=== PATIENT | male | born 1985 | race Caucasian/White ===

== ENCOUNTER 2017-04-11 12:31 | Emergency (ER) | payer BC ==
--- NOTE | 2017-04-11 14:03 | EDM.PDOC ---
ED HPI GENERAL MEDICAL PROBLEM - General Chief Complaint: Cardiovascular Problem Stated Complaint: RACING HEART,SHORT OF BREATH Time Seen by Provider: 04/11/17 12:45 Source of Information: Reports: Patient, Family History Limitations: Reports: No Limitations - History of Present Illness INITIAL COMMENTS - FREE TEXT/NARRATIVE: pt worked all nite at the [employer] and he came home and was asleep. He woke up in the middle of his sleep period and felt like his heart was racing. He became very panicy and then did hyperventilate. He arrived here and felt tingly and still was hyperventilating some. Onset: Today, Sudden Duration: Hour(s): Location: Reports: Chest, Other ( was hyperventilating. ) Associated Symptoms: Reports: Shortness of Breath - Related Data Allergies Allergy/AdvReac Type Severity Reaction Status Date / Time No Known Allergies Allergy Verified 04/06/16 00:12 Home Meds: Home Meds Propranolol HCl 10 mg PO BID 04/11/17 [History] Past Medical History Musculoskeletal History: Reports: Fracture Other Musculoskeletal History: shoulder, clavical leg Hematologic History: Reports: Other (See Below) Other Hematologic History: bacterial meningitis - Infectious Disease History Infectious Disease History: Reports: Meningitis - Past Surgical History GI Surgical History: Reports: Appendectomy, Hernia Repair/Other Social & Family History - Family History Family Medical History: Noncontributory - Tobacco Use Smoking Status *Q: Never Smoker Second Hand Smoke Exposure: No - Recreational Drug Use Recreational Drug Use: No - Living Situation & Occupation Living situation: Reports: ED ROS GENERAL - Review of Systems Review Of Systems: See Below Constitutional: Reports: No Symptoms HEENT: Reports: No Symptoms Respiratory: Reports: Shortness of Breath Cardiovascular: Reports: Palpitations Endocrine: Reports: No Symptoms GI/Abdominal: Reports: No Symptoms : Reports: No Symptoms Musculoskeletal: Reports: No Symptoms Skin: Reports: No Symptoms Neurological: Reports: No Symptoms ED EXAM, GENERAL - Physical Exam Exam: See Below Free Text/Narrative:: pt arrived and was hyperventilating. Exam Limited By: No Limitations General Appearance: Alert, Anxious Ears: Normal TMs Nose: Normal Inspection Throat/Mouth: Normal Inspection Head: Atraumatic Neck: Normal Inspection Respiratory/Chest: No Respiratory Distress Cardiovascular: Regular Rate, Rhythm GI/Abdominal: Soft, Non-Tender Rectal (Males) Exam: Deferred Back Exam: Normal Inspection Extremities: Normal Inspection Neurological: Alert, Oriented Psychiatric: Anxious Course - Vital Signs Last Recorded V/S: Last Vital Signs Temp 37.3 C 04/11/17 12:43 Pulse Resp 26 H 04/11/17 12:43 BP 142/92 H 04/11/17 12:43 Pulse Ox 100 04/11/17 12:43 - Orders/Labs/Meds Orders: Active Orders 24 hr Category Date Time Status EKG Documentation Completion [RC] ASDIRECTED Care 04/11/17 14:02 Active EKG 12 Lead [EK] Routine Ther 04/11/17 14:02 Ordered Labs: Laboratory Tests 04/11/17 04/11/17 04/11/17 Range/Units 14:05 14:05 14:05 WBC 8.6 (4.5-11.0) K/uL RBC 5.43 (4.30-5.90) M/uL Hgb 16.4 H (12.0-15.0) g/dL Hct 44.9 (40.0-54.0) % MCV 83 (80-98) fL MCH 30 (27-31) pg MCHC 37 H (32-36) % Plt Count 235 (150-400) K/uL Neut % (Auto) 57 (36-66) % Lymph % (Auto) 28 (24-44) % [place] % (Auto) 12 H (2-6) % Eos % (Auto) 2 (2-4) % Baso % (Auto) 1 (0-1) % Sodium 138 L (140-148) mmol/L Potassium 3.4 L (3.6-5.2) mmol/L Chloride 103 (100-108) mmol/L Carbon Dioxide 27 (21-32) mmol/L Anion Gap 11.4 (5.0-14.0) mmol/L BUN 9 (7-18) mg/dL Creatinine 0.8 (0.8-1.3) mg/dL Est Cr Clr Drug Dosing 149.54 mL/min Estimated GFR (MDRD) > 60 (>60) Glucose 83 (74-106) mg/dL Calcium 9.0 (8.5-10.1) mg/dL Total Bilirubin 1.1 H (0.2-1.0) mg/dL AST 41 H (15-37) U/L ALT 82 H (12-78) U/L Alkaline Phosphatase 87 (46-116) U/L Total Protein 7.3 (6.4-8.2) g/dL Albumin 3.9 (3.4-5.0) g/dL Globulin 3.4 (2.3-3.5) g/dL Albumin/Globulin Ratio 1.1 L (1.2-2.2) TSH, Ultra Sensitive 3.767 H (0.358-3.740) uIU/mL Urine Color Urine Appearance Urine pH (4.5-8.0) Ur Specific [place] (1.008-1.030) Urine Protein (NEGATIVE) mg/dL Urine Glucose (UA) (NEGATIVE) mg/dL Urine Ketones (NEGATIVE) mg/dL Urine Occult Blood (NEGATIVE) Urine Nitrite (NEGAITVE) Urine Bilirubin (NEGATIVE) Urine Urobilinogen (NORMAL) mg/dL Ur Leukocyte Esterase (NEGATIVE) Urine RBC (0-5) Urine WBC (0-5) Ur Epithelial Cells Amorphous Sediment Urine Bacteria Urine Mucus 04/11/17 Range/Units 14:19 WBC (4.5-11.0) K/uL RBC (4.30-5.90) M/uL Hgb (12.0-15.0) g/dL Hct (40.0-54.0) % MCV (80-98) fL MCH (27-31) pg MCHC (32-36) % Plt Count (150-400) K/uL Neut % (Auto) (36-66) % Lymph % (Auto) (24-44) % [place] % (Auto) (2-6) % Eos % (Auto) (2-4) % Baso % (Auto) (0-1) % Sodium (140-148) mmol/L Potassium (3.6-5.2) mmol/L Chloride (100-108) mmol/L Carbon Dioxide (21-32) mmol/L Anion Gap (5.0-14.0) mmol/L BUN (7-18) mg/dL Creatinine (0.8-1.3) mg/dL Est Cr Clr Drug Dosing mL/min Estimated GFR (MDRD) (>60) Glucose (74-106) mg/dL Calcium (8.5-10.1) mg/dL Total Bilirubin (0.2-1.0) mg/dL AST (15-37) U/L ALT (12-78) U/L Alkaline Phosphatase (46-116) U/L Total Protein (6.4-8.2) g/dL Albumin (3.4-5.0) g/dL Globulin (2.3-3.5) g/dL Albumin/Globulin Ratio (1.2-2.2) TSH, Ultra Sensitive (0.358-3.740) uIU/mL Urine Color Yellow Urine Appearance Clear Urine pH 9.0 H (4.5-8.0) Ur Specific [place] 1.010 (1.008-1.030) Urine Protein Negative (NEGATIVE) mg/dL Urine Glucose (UA) Normal (NEGATIVE) mg/dL Urine Ketones Negative (NEGATIVE) mg/dL Urine Occult Blood Negative (NEGATIVE) Urine Nitrite Negative (NEGAITVE) Urine Bilirubin Negative (NEGATIVE) Urine Urobilinogen Normal (NORMAL) mg/dL Ur Leukocyte Esterase Negative (NEGATIVE) Urine RBC Not seen (0-5) Urine WBC Not seen (0-5) Ur Epithelial Cells Rare Amorphous Sediment Not seen Urine Bacteria Not seen Urine Mucus Not seen Meds: Medications Discontinued Medications Generic Name Dose Route Start Last Admin Trade Name Freq PRN Reason Stop Dose Admin Lorazepam 0.5 mg 04/11/17 15:01 Ativan PO 04/11/17 15:02 ONETIME ONE - Re-Assessments/Exams Free Text/Narrative Re-Assessment/Exam: 04/11/17 15:25 chest xray was found to be normal. He had a normal sinus rhythm and not rapid. He was being monitored for his o2 sats and after he fell asleep his sats dropped . I feel sleep apnea is a consideration Departure - Departure Time of Disposition: 15:32 Disposition: Home, Self-Care 01 Condition: Fair Clinical Impression: Hypothyroid, Sleep apnea in adult Forms: ED Department Discharge Care Plan Goals: appt with Matthew Gleason in next 4-5 days, ativan .5 1 tab q6h if pt should panc again. i - My Orders Last 24 Hours: My Active Orders 04/11/17 14:02 EKG Documentation Completion [RC] ASDIRECTED EKG 12 Lead [EK] Routine - Assessment/Plan Last 24 Hours: My Active Orders 04/11/17 14:02 EKG Documentation Completion [RC] ASDIRECTED EKG 12 Lead [EK] Routine
--- NOTE | 2017-04-11 14:29 | CR ---
Chest 2V HISTORY: Shortness of breath. COMPARISON: None FINDINGS: Cardiac size and pulmonary vessels normal. There are no infiltrates or effusions. No pneum othorax. The osseous structures appear normal. IMPRESSION: No acute pulmonary disease.
[2017-04-11] MEDS ORDERED: LORazepam 0.5 MG Tab PO ONE (15:01)
[2017-04-11 16:00] VITALS: BP 148/81
== END 2017-04-11 16:00 | disposition home or self-care (01) ==
LOC: JP.ED 12:31
DX: E03.9 Hypothyroidism, unspecified (principal); G47.30 Sleep apnea, unspecified; Z98.890 Other specified postprocedural states
CPT/HCPCS: 36415; 71020; 80053; 81001; 84443; 85025; 93005; 99285; A9270

== ENCOUNTER 2018-03-05 20:38 | Emergency (ER) | payer BC ==
[2018-03-05 21:22] VITALS: BP 138/53
--- NOTE | 2018-03-05 21:44 | EDM.PDOC ---
ED HPI GENERAL MEDICAL PROBLEM - General Chief Complaint: Lower Extremity Injury/Pain Stated Complaint: HURT LEFT HEEL Time Seen by Provider: 03/05/18 21:25 Source of Information: Reports: Patient History Limitations: Reports: No Limitations - History of Present Illness INITIAL COMMENTS - FREE TEXT/NARRATIVE: 32-year-old male injured his left heel while rounding the bases playing softball. He heard a loud pop and was unable to bear weight with his left foot. He now can't plantar flex his foot and he has bogginess in the posterior aspect of the heel. No other injury. Onset: Sudden Duration: Hour(s): (Within the last few hours) Associated Symptoms: Reports: No Other Symptoms Left Lower Posterior Leg Pain Score (Numeric/FACES): 6 - Related Data Allergies Allergy/AdvReac Type Severity Reaction Status Date / Time No Known Allergies Allergy Verified 04/06/16 00:12 Past Medical History Musculoskeletal History: Reports: Fracture Other Musculoskeletal History: shoulder, clavical leg Hematologic History: Reports: Other (See Below) Other Hematologic History: bacterial meningitis - Infectious Disease History Infectious Disease History: Reports: Meningitis - Past Surgical History GI Surgical History: Reports: Appendectomy, Hernia Repair/Other Social & Family History - Family History Family Medical History: Noncontributory - Tobacco Use Smoking Status *Q: Never Smoker - Caffeine Use Caffeine Use: Reports: Coffee - Recreational Drug Use Recreational Drug Use: No - Living Situation & Occupation Living situation: Reports: Review of Systems - Review of Systems Review Of Systems: ROS reveals no pertinent complaints other than HPI. ED EXAM, GENERAL - Physical Exam Exam: See Below Exam Limited By: No Limitations General Appearance: Alert, No Apparent Distress Respiratory/Chest: No Respiratory Distress Extremities: Other (Exam is otherwise limited to the left lower extremity. Patient has an obvious rupture of the distal Achilles tendon with bogginess over the distal tendon with firmness above the rupture, pain with attempt at plantarflexion of the foot and significant weakness) Course - Vital Signs Last Recorded V/S: Last Vital Signs Temp 96.3 F 03/05/18 21:25 Pulse 105 H 03/05/18 21:25 Resp 16 03/05/18 21:25 BP 138/53 L 03/05/18 21:25 Pulse Ox 97 03/05/18 21:25 - Orders/Labs/Meds Orders: Active Orders 24 hr Category Date Time Status DME for Discharge [COMM] Stat Oth 03/05/18 21:45 Ordered - Re-Assessments/Exams Free Text/Narrative Re-Assessment/Exam: 03/05/18 21:44 Patient was placed in a walking boot, given crutches and 10 hydrocodone for extra pain control. His condition was discussed with Amaury Bates, we'll recheck him on for likely surgery in the near future. Departure - Departure Time of Disposition: 22:05 Disposition: Home, Self-Care 01 Condition: Good Clinical Impression: Rupture of Achilles tendon - Discharge Information Instructions: Achilles Tendon Rupture Referrals: PCP,None [Primary Care Provider] - Forms: ED Department Discharge Care Plan Goals: Wear boot until recheck with Amaury Bates on . Use crutches to limit weightbearing, elevate foot when able and use pain medications if needed. - My Orders Last 24 Hours: My Active Orders 03/05/18 21:45 DME for Discharge [COMM] Stat - Assessment/Plan Last 24 Hours: My Active Orders 03/05/18 21:45 DME for Discharge [COMM] Stat
== END 2018-03-05 22:05 | disposition home or self-care (01) ==
LOC: JP.ED 20:38
DX: S86.012A Strain of left Achilles tendon, initial encounter (principal); Y93.64 Activity, baseball; X50.9XXA Other and unspecified overexertion or strenuous movements or postures, initial encounter
CPT/HCPCS: 99283

== ENCOUNTER 2018-03-12 08:21 | Day surgery (SDC) | payer BC ==
[~2018-03-12 08:21] MED LIST: Dexamethasone 4 MG/ML SDV ONE; Glycopyrrolate 0.2 MG/ML 5 ML MDV ONE; Neostigmine Methylsulfate 1 MG/ML 5 ML Syringe ONE; Ondansetron 4 MG/2 ML SDV ONE; Propofol 200 MG/20 ML SDV ONE; Rocuronium 50 MG/5 ML Vial ONE; fentaNYL 250 MCG/5 ML SDV ONE
[2018-03-12] MEDS ORDERED: ceFAZolin 2 GM in Premix Bag 1 BAG IV ONE (09:00)
[2018-03-12] MEDS ORDERED: Povidone-Iodine 10% Soln 118.25 ML Bottle ONE (09:56)
[2018-03-12] MEDS ORDERED: Bupivacaine 0.5%/EPINEPHrine 1:200,000 50 ML MDV ONE (09:56)
[2018-03-12] MEDS ORDERED: Lactated Ringers 1,000 ML IV SCH (10:40)
[2018-03-12] MEDS ORDERED: fentaNYL 100 MCG/2 ML SDV IVPUSH ONE (12:59)
[2018-03-12] MEDS ORDERED: Meperidine PF 100 MG/ML Syringe IM ONE (13:00)
[2018-03-12] MEDS ORDERED: Ketorolac 60 MG/2 ML SDV IM ONE (13:01)
[2018-03-12] MEDS ORDERED: hydrOXYzine HCl 100 MG/2 ML SDV IM ONE (13:15)
[2018-03-12] MEDS ORDERED: Acetaminophen/oxyCODONE 325-5 MG Tab PO PRN (13:45)
[2018-03-12 14:43] VITALS: BP 114/93
--- NOTE | 2018-03-12 16:59 | OR ---
DATE OF PROCEDURE: 03/12/2018 PREOPERATIVE DIAGNOSIS: Left Achilles tendon rupture, closed. POSTOPERATIVE DIAGNOSIS: Left Achilles tendon rupture, closed. PROCEDURE: Open repair and reconstruction of left Achilles tendon. ANESTHESIA: General endotracheal intubation. FLUIDS: Lactated Ringer solution. ESTIMATED BLOOD: 5 mL. COMPLICATION: None. SPECIMEN: None. DISCHARGE DISPOSITION: Stable to PACU. INDICATIONS FOR THE PROCEDURE: The patient was seen preoperatively by myself in the clinic. He was seen in the emergency department with what was thought to be an Achilles tendon rupture. He was placed on nonweightbearing in a walker boot with crutches. He followed up at the clinic with me. He had a palpable defect. We did obtain an MRI, which did show an Achilles tendon rupture in the avascular region approximately 6-9 cm proximal to its insertion on the calcaneus. Risks and benefits of the procedure were explained to the patient. Informed consent was obtained. DETAILS OF THE PROCEDURE: The patient was seen preoperatively by myself and the anesthesia staff in the the preop holding area where the operative site was marked. He was brought to the operative suite by the anesthesia staff where general endotracheal anesthesia was administered. He was placed in a prone position on the David table. All extremities were found to be well padded and had a well-padded tourniquet placed on his thigh. The left lower extremity was then prepped and draped in a sterile manner. Time-out was called identifying the correct patient, the correct procedure, the correct site, and that the antibiotics had begun within appropriate period of time. The left lower extremity was then exsanguinated. Tourniquet was raised to 300 mmHg. An incision just medial to midline was made just proximal to the Achilles insertion on the calcaneus and then approximately around 10 cm. This was carried down through the deep fascia. I then used Metzenbaum to carefully go through and identify so that I would not injure any nerves. I did not see any present. I was able to visualize the sheath. There was a large hematoma present and then the Achilles rupture was visualized. I was able to go around the entire Achilles to free it up with Metzenbaum and a knife. I then used two #2 MAC sutures from [employer] and went through in a Krackow stitch through each tendon, and then under tension, tied these each to their opposing end. This was rather easily done as the tendons were not frayed significantly. I then oversewed this by placing a Graftjacket on top and then oversewing it with my remaining MAC suture. I did use free needles to do this as well. I then tied it and then removed any extra of the graft that was overhanging. I then irrigated and then repaired the paratenon around the Achilles with #1 Stratafix and then closed the remainder of the subcu with #1 Stratafix, followed by 3-0 Stratafix followed by Prineo followed by a dressing and a stockinette. We then placed it back into the walker boot. He was then transferred back to the hospital bed in good condition and taken to the PACU in good condition. Amaury Bates DO /[id number]
== END 2018-03-12 15:01 | disposition home or self-care (01) ==
LOC: JP.SDS 08:21
PROVIDERS: ATTEND Orthopaedic Surgery
DX: S86.012A Strain of left Achilles tendon, initial encounter (principal); Y93.64 Activity, baseball; Y92.9 Unspecified place or not applicable; Z87.81 Personal history of (healed) traumatic fracture; Z86.61 Personal history of infections of the central nervous system; Z98.890 Other specified postprocedural states
CPT/HCPCS: 27650; A9270; J0690; J1100; J1885; J2405; J2704; J2710; J3010; J3410; J7120

== ENCOUNTER 2018-05-08 08:10 | Inpatient (IN) | payer BC ==
[2018-05-08] MEDS ORDERED: Povidone-Iodine 10% Soln 118.25 ML Bottle ONE (08:26)
[2018-05-08] MEDS ORDERED: Vancomycin 1 GM SDV ONE (08:26)
--- NOTE | 2018-05-08 10:27 | CR ---
CHEST: Portable CLINICAL HISTORY:PICC line placement COMPARISON:2017 FINDINGS: Heart size and pulmonary vascularity are normal. Lungs are clear. There is no pneumothorax . There is a PICC line from the left upper extremity. The tip is ascending the superior vena cava fro m the brachycephalic caval junction. This needs to be withdrawn slightly then advanced. IMPRESSION: Left upper extremity PICC line is ascending the superior vena cava The ACU was notified at the time of this dictation at 10:25 AM
[2018-05-08] MEDS: Lactated Ringers 1,000 ML IV SCH (11:14)
[2018-05-08] MEDS: Bupivacaine 0.5%/EPINEPHrine 1:200,000 50 ML MDV ONE ×2 (11:35→11:45)
[2018-05-08] MEDS ORDERED: fentaNYL 100 MCG/2 ML SDV ONE (12:00)
[2018-05-08] MEDS ORDERED: ceFAZolin 2 GM in Premix Bag 1 BAG IV ONE (12:00)
[2018-05-08] MEDS ORDERED: Midazolam 1 MG/ML 2 ML SDV ONE (12:00)
[2018-05-08] MEDS ORDERED: Propofol 200 MG/20 ML SDV ONE ×2 (12:00)
[2018-05-08] MEDS ORDERED: diphenhydrAMINE 25 MG Cap PO PRN (12:04)
[2018-05-08] MEDS ORDERED: HYDROmorphone 0.5 MG/0.5 ML Syringe IVPUSH PRN (12:04)
[2018-05-08] MEDS ORDERED: Zolpidem 5 MG Tab PO PRN (12:04)
[2018-05-08] MEDS ORDERED: Ondansetron 4 MG/2 ML SDV IVPUSH PRN (12:04)
[2018-05-08] MEDS ORDERED: Naloxone 0.4 MG/ML SDV IVPUSH PRN (12:04)
--- NOTE | 2018-05-08 12:30 | CR ---
CHEST: Portable CLINICAL HISTORY:PICC line placement COMPARISON:Earlier same day FINDINGS: The PICC line is now in the superior vena cava atrial junction region. Lungs are clear. Th ere is no pneumothorax IMPRESSION: Left upper extremity PICC line in good position No pneumothorax
--- NOTE | 2018-05-08 13:27 | OR ---
DATE OF PROCEDURE: 05/08/2018 PREOPERATIVE DIAGNOSIS: Left ankle wound dehiscence. POSTOPERATIVE DIAGNOSIS: Left ankle wound dehiscence. PROCEDURE PERFORMED: 1. Left ankle irrigation and debridement. Skin, subcutaneous tissue, fascia, muscle, tendon. 2. Left ankle wound VAC placement, less than 50 cm2. Measurements 4cm x 1.5cm x 1.5 cm. ANESTHESIA: Conscious sedation. FLUIDS: Lactated Ringer's solution. ESTIMATED BLOOD LOSS: Less than 25 mL. COMPLICATIONS: None. SPECIMEN: None. DISCHARGE DISPOSITION: Stable to PACU. INDICATIONS FOR THE PROCEDURE: The patient is well known to me. About 2 months ago, we did an Achilles tendon reconstruction. He did quite well after the surgery. He was healed up and then went to [place]. After arriving in [place], the wound dehisced. He spent two days in a [facility] hospital and was given intermittent IV antibiotics. Because that was gone when he got back, he went to [facility] or walk-in. He was given antibiotics, and cultures were taken, which grew Staph aureus. He then saw me at the clinic. We started him on the Bactrim antibiotic at that time. I saw him the following day and had him consult with Dr. Wilson for management. We then consented him for the above- mentioned procedure. Risks and benefits of the procedure were explained to the patient. DETAILS OF PROCEDURE: The patient was seen preoperatively by myself and the anesthesia staff in preop holding area where the operative site was marked. He was brought to the operative suite by Anesthesia staff where conscious sedation was administered. The left lower extremity was then prepped and draped in a sterile manner. Time-out was called identifying the correct patient, the correct procedure, the correct site, and the antibiotics had begun within appropriate period of time. I then used a [place] and delineated how far up and down, went approximately 3 cm up and 3 cm down from the initial 1 cm area that was open. I did not track any deeper, so I thought this was better than expected. I then opened the incision, proximally and distally. We then copiously irrigated with Betadine infused irrigation and then I used a [place] and a blade to debride any soft tissue. I did remove some of the skin edges. After this looked very clean and nice, we then applied our sponge and applied the wound VAC. After the wound VAC was applied, he was then allowed to awaken from conscious sedation and taken to his hospital bed in stable condition. Amaury Bates DO /[id number] MTDD
[2018-05-08] MEDS: Piperacillin/Tazobactam/Dext 3.375 GM in Premix Bag 1 BAG IV SCH ×2 (14:34→20:06)
[2018-05-08] MEDS: Famotidine 20 MG Tab PO SCH ×2 (14:34→21:25)
[2018-05-08] MEDS: Acetaminophen/oxyCODONE 325-5 MG Tab PO PRN (18:50)
[2018-05-09] MEDS: Acetaminophen/oxyCODONE 325-5 MG Tab PO PRN ×3 (00:47→13:23)
[2018-05-09] MEDS: Piperacillin/Tazobactam/Dext 3.375 GM in Premix Bag 1 BAG IV SCH ×2 (02:08→09:26)
[2018-05-09] MEDS: Lactated Ringers 1,000 ML IV SCH (02:08)
--- NOTE | 2018-05-09 08:24 | PCM.DCSUM1 ---
Discharge Summary - Hospital Course Diagnosis: Stroke: No - Discharge Data Discharge Date: 05/09/18 Discharge Disposition: Home, Self-Care 01 Condition: Good - Patient Summary/Data Operative Procedure(s) Performed: irrigation and debridement left shoulder, wound vac placement, picc placement Consults: Consultations 05/08/18 12:04 Consult to Case Management [CONS] Routine Comment: Physician Instructions: plan to d/c on invanz daily for picc Quantity: Reason for Consult: wound vac and picc line management Respiratory Care Assess and Treatment [CONS] Routine Comment: Physician Instructions: Post-Op Pneumonia Prevention - Patient Instructions Diet: Usual Diet as Tolerated Activity: Apply Ice, As Tolerated, Full Weight Bearing Driving: May Drive Today Showering/Bathing: February Shower Wound/Incision Care: Keep Operative Site/Wound Site Clean and Dry, Do NOT Change Dressing Notify Provider of: Fever, Increased Pain, Swelling and Redness, Drainage, Nausea and/or Vomiting - Discharge Plan *PRESCRIPTION DRUG MONITORING PROGRAM REVIEWED*: Yes *COPY OF PRESCRIPTION DRUG MONITORING REPORT IN PATIENT DONNA: No Prescriptions/Med Rec: Acetaminophen/oxyCODONE [Percocet 325-5 MG] 1 tab PO Q8HR PRN #21 tablet PRN Reason: Pain Home Medications: Home Meds Acetaminophen/oxyCODONE [Percocet 325-5 MG] 1 tab PO QID PRN 05/08/18 [History] Acetaminophen/oxyCODONE [Percocet 325-5 MG] 1 tab PO Q8HR PRN #21 tablet [Rx] Referrals: Amaury Bates DO [Physician] - 05/27/18 1:00 pm Jeancarlos Wilson MD [Physician] - 05/14/18 12:00 pm - Discharge Summary/Plan Comment DC Time >30 min.: No - General Info Functional Status: Reports: Pain Controlled, Tolerating Diet, Ambulating, Urinating - Review of Systems General: Reports: No Symptoms HEENT: Reports: No Symptoms Pulmonary: Reports: No Symptoms Cardiovascular: Reports: No Symptoms Gastrointestinal: Reports: No Symptoms Genitourinary: Reports: No Symptoms Musculoskeletal: Reports: Leg Pain Skin: Reports: No Symptoms Neurological: Reports: No Symptoms Psychiatric: Reports: No Symptoms - Patient Data Vitals - Most Recent: Last Vital Signs Temp 98.1 F 05/09/18 07:35 Pulse 92 05/09/18 07:35 Resp 13 05/09/18 07:35 BP 112/74 05/09/18 07:35 Pulse Ox 98 05/09/18 07:35 Weight - Most Recent: 265 lb 11.2 oz I&O - Last 24 hours: Intake & Output 05/08/18 05/09/18 05/09/18 22:59 06:59 14:59 Intake Total 500 331 Balance 500 331 Med Orders - Current: Current Medications Diphenhydramine HCl (Benadryl) 25 mg PO Q4H PRN PRN Reason: pruritis Last Admin: 05/09/18 00:48 Dose: 25 mg Famotidine (Pepcid) 20 mg PO BID [facility] Last Admin: 05/08/18 21:25 Dose: 20 mg Hydromorphone HCl (Dilaudid) 0.4 mg IVPUSH Q2H PRN PRN Reason: Pain Lactated Ringer's (Ringers, Lactated) 1,000 mls @ 0 mls/hr IV ASDIRECTED [facility] Last Admin: 05/09/18 02:08 Dose: 25 mls/hr Piperacillin/Tazobactam/ (Dextrose 3.375 gm/ Premix) 50 mls @ 100 mls/hr IV Q6H [facility] Last Admin: 05/09/18 02:08 Dose: 100 mls/hr Naloxone HCl (Narcan) 0.1 mg IVPUSH ONETIME PRN PRN Reason: obtundation Ondansetron HCl (Zofran) 8 mg IVPUSH Q6H PRN PRN Reason: Nausea/Vomiting Oxycodone/Acetaminophen (Percocet 325-5 Mg) 1 tab PO Q4H PRN PRN Reason: Pain Last Admin: 05/09/18 00:47 Dose: 1 tab Zolpidem Tartrate (Ambien) 5 mg PO BEDTIME PRN PRN Reason: Insomnia Discontinued Medications Bupivacaine HCl/Epinephrine Bitart (Marcaine 0.5%/Epinephrine 1:200,000) Confirm Administered Dose 50 ml .ROUTE .STK-MED ONE Stop: 05/08/18 08:27 Last Admin: 05/08/18 11:45 Dose: 20 ml Cefazolin Sodium/Dextrose 2 gm (/ Premix) 50 mls @ 100 mls/hr IV ONETIME ONE Stop: 05/08/18 12:29 Last Admin: 05/08/18 11:30 Dose: 100 mls/hr Povidone Iodine (Betadine 10% Soln) Confirm Administered Dose 1 ml .ROUTE .STK- MED ONE Stop: 05/08/18 08:27 Last Admin: 05/08/18 11:50 Dose: 1 ml Vancomycin HCl (Vancomycin) Confirm Administered Dose 1 gm .ROUTE .STK-MED ONE Stop: 05/08/18 08:27 - Exam General: Reports: Alert HEENT: Reports: Pupils Equal, Pupils Reactive, EOMI, Mucous Membr. Moist/[place] Neck: Reports: Supple, Trachea Midline Lungs: Reports: Normal Respiratory Effort Extremities: Leg Pain Skin: Reports: Other Wound/Incisions: Reports: Healing Well, Drainage, Erythema Improving Neurological: Reports: No New Focal Deficit Psy/Mental Status: Reports: Alert, Normal Affect, Normal Mood
[2018-05-09] MEDS: Famotidine 20 MG Tab PO SCH (09:51)
[2018-05-09] MEDS ORDERED: Ertapenem 1 GM in Sodium Chloride 0.9% 100 ML IV SCH (10:00)
[2018-05-09 11:15] VITALS: BP 124/65
== END 2018-05-09 17:00 | disposition home or self-care (01) | DRG 850 ==
LOC: JP.SDS 08:10 → JP.2SS 13:09
PROVIDERS: ADMIT Orthopaedic Surgery; ATTEND Orthopaedic Surgery
PROC: 0L9 Tendons, Drainage (ICD-10-PCS; principal; 2018-05-08)
PROC: 2W1MX6Z Compression of Left Lower Extremity using Pressure Dressing (ICD-10-PCS; 2018-05-08)
PROC: 02HV33Z Insertion of Infusion Device into Superior Vena Cava, Percutaneous Approach (ICD-10-PCS; 2018-05-08)
PROC: B548ZZA Ultrasonography of Superior Vena Cava, Guidance (ICD-10-PCS; 2018-05-08)
DX: T81.30XD Disruption of wound, unspecified, subsequent encounter (principal); S86.019D Strain of unspecified Achilles tendon, subsequent encounter
CPT/HCPCS: 97605; A9270-GY; J0690; J1335; J2250; J2543; J2704; J3010; J3370; J3490; J7030; J7120

== ENCOUNTER → 2018-07-02 | Day surgery (SDC) | payer BC ==
[~2018-07-02] MED LIST changes: +Bupivacaine 0.5% 50 ML MDV ONE; +Ketorolac 30 MG/ML SDV IVPUSH ONE; +Lactated Ringers 1,000 ML IV SCH; +Lidocaine 2% 20 ML MDV ONE; +Piperacillin/Tazobactam/Dext 3.375 GM in Premix Bag 1 BAG IV ONE; +Succinylcholine 200 MG/10 ML MDV ONE; +Vancomycin 1 GM SDV ONE
[2018-07-02 18:34] VITALS: BP 119/82
--- NOTE | 2018-07-03 06:57 | OR ---
DATE OF PROCEDURE: 07/02/2018 [employer] DIRECTOR: None. PREOPERATIVE DIAGNOSIS: Abscess with ulceration and cellulitis of left posterior ankle. POSTOPERATIVE DIAGNOSIS: Abscess with ulceration and cellulitis of left posterior ankle. PROCEDURES PERFORMED: Incision and drainage of left ankle with debridement of Achilles tendon. ANESTHESIA: General. HEMOSTASIS: Obtained with high-calf tourniquet on the left calf at 250 mmHg. ESTIMATED BLOOD LOSS: 20 mL. MATERIALS: OsteoSet beads impregnated with vancomycin were used. INJECTABLES: None. PATHOLOGY: Aerobic and anaerobic cultures were sent. CONDITION: Stable. INDICATIONS FOR SURGERY: Abscess of left posterior ankle near the Achilles tendon with nonhealing ulceration. DESCRIPTION OF PROCEDURE: The patient was brought into the operating room and then general anesthesia was administered. The patient was placed onto the operating table in the prone position. The left leg was scrubbed, prepped and draped in the usual aseptic manner and held up at 90 degrees with the knee flexed to exsanguinate it and then tourniquet was inflated. Foot was lowered to table. Skin incision was made through the abscess and through the ulceration in a lazy-S type confirmation from lateral to medial over the Achilles tendon. Incisions were deepened through subcutaneous tissues with care taken to identify and retract all vital neurovascular structures. Bleeders were cauterized. The abscess was located proximal to the ulceration. The abscess was completely excised as was the skin over it, because it was infected, down to a healthy bleeding tissue. All infected tissue was removed. There were two tunnels where the infection was entering the tendon. We examined these and found that, where the sutures knots were, did correspond to 1 where the abscess was and 2 where the ulceration was. So, these knots and sutures were completely removed as best as we could. We did not remove suture that we could not locate because we did not want to cut all the way through the Achilles tendon and cause it to rupture again. So, all of it was removed as far as we could to healthy bleeding tissue. The incision, which was approximately 10 cm in length, was then flushed out with 3 L of sterile saline with bacitracin in it. We re-examined and made sure that there was no disease or infected- looking tissue left. We did remove some more from the base of the ulceration down to healthy tissue. Then, the wound was packed with OsteoSet vancomycin-impregnated beads and was packed also with iodoform quarter-inch gauze and then dressed with 4x4s, ABD pad, Kerlix, and Frederic. The patient was returned to recovery room with vital signs stable and vascular status intact to both feet. The patient to follow up in two days with Dr. Wilson. The patient was placed on IV vancomycin per Pharmacy dosing and also Zosyn 3.375 grams q.8 hours IV. The patient was returned to the recovery room with vital signs stable and vascular status intact to both feet. The patient to remain nonweightbearing until told otherwise. The patient was given Percocet for pain 5/325 one tab p.o. q.4 hours p.r.n. pain and Vistaril 25 mg one tab p.o. q.8 hours p.r.n. pain. Devan Cartwright DPM /[id number]
== END ==
LOC: JP.SDS 14:28
PROVIDERS: ATTEND Podiatrist Foot & Ankle Surgery
DX: T81.4XXA Infection following a procedure, initial encounter (principal); B95.61 Methicillin susceptible Staphylococcus aureus infection as the cause of diseases classified elsewhere; L03.116 Cellulitis of left lower limb; L02.416 Cutaneous abscess of left lower limb; L97.328 Non-pressure chronic ulcer of left ankle with other specified severity; E66.9 Obesity, unspecified; Z68.38 Body mass index [BMI] 38.0-38.9, adult; Z88.8 Allergy status to other drugs, medicaments and biological substances
CPT/HCPCS: 11981; 27603; 36415; 80048; 85027; 87070; 87075; 87077; 87186; 87205; C1776; J0330; J1100; J1885; J2405; J2543; J2704; J3010; J3370; J3490; J7050; J2710